=== PATIENT | male | born 1940 | race African-American/Black ===

== ENCOUNTER 2020-02-08 11:02 | Outpatient (CLI) | payer OTHER | END 2020-02-08 16:03 | disposition home or self-care (01) | LOC: SONOGRAMA 11:02 | PROVIDERS: ATTEND Specialist | DX: N40.2 Nodular prostate without lower urinary tract symptoms (principal); R97.20 Elevated prostate specific antigen [PSA] ==

== ENCOUNTER 2022-02-05 15:51 | Outpatient (CLI) | payer OTHER | END 2022-02-05 16:00 | disposition home or self-care (01) | LOC: RAD 15:51 | PROVIDERS: ATTEND Internal Medicine | DX: M54.50 Low back pain, unspecified (principal); M54.6 Pain in thoracic spine; M54.2 Cervicalgia; M25.562 Pain in left knee ==

== ENCOUNTER 2022-09-03 11:31 | Outpatient (CLI) | payer OTHER | END 2022-09-03 11:43 | disposition home or self-care (01) | LOC: TOM 11:31 | PROVIDERS: ATTEND Internal Medicine | DX: J44.9 Chronic obstructive pulmonary disease, unspecified (principal); R09.02 Hypoxemia; R91.8 Other nonspecific abnormal finding of lung field ==

== ENCOUNTER 2022-10-27 12:52 | Outpatient (CLI) | payer OTHER | END 2022-10-27 12:56 | disposition home or self-care (01) | LOC: RAD 12:52 | PROVIDERS: ATTEND Orthopaedic Surgery | DX: M25.562 Pain in left knee (principal) ==

== ENCOUNTER 2023-10-25 10:16 | Outpatient (CLI) | payer OTHER | END 2023-10-25 10:24 | disposition home or self-care (01) | LOC: SONOGRAMA 10:16 | PROVIDERS: ATTEND Internal Medicine | DX: R94.5 Abnormal results of liver function studies (principal); D50.8 Other iron deficiency anemias ==

== ENCOUNTER 2024-04-16 09:00 | Outpatient (CLI) | payer OTHER | END 2024-04-16 09:13 | disposition home or self-care (01) | LOC: SONOGRAMA 09:00 | PROVIDERS: ATTEND Internal Medicine | DX: N40.1 Benign prostatic hyperplasia with lower urinary tract symptoms (principal); J32.1 Chronic frontal sinusitis ==

== ENCOUNTER 2024-05-16 14:08 | Outpatient (CLI) | payer OTHER | END 2024-05-16 14:17 | disposition home or self-care (01) | LOC: RAD 14:08 | PROVIDERS: ATTEND Internal Medicine Rheumatology | DX: M49.87 Spondylopathy in diseases classified elsewhere, lumbosacral region (principal); M16.0 Bilateral primary osteoarthritis of hip; M51.379 Other intervertebral disc degeneration, lumbosacral region without mention of lumbar back pain or lower extremity pain | CPT/HCPCS: 72148 ==

== ENCOUNTER 2024-06-11 13:15 | Outpatient (CLI) | payer OTHER | END 2024-06-11 13:16 | disposition home or self-care (01) | LOC: NUCLEAR 13:15 | PROVIDERS: ATTEND Internal Medicine Rheumatology | DX: M81.0 Age-related osteoporosis without current pathological fracture (principal) ==

== ENCOUNTER 2025-02-28 12:04 | Outpatient (CLI) | payer OTHER | END 2025-02-28 12:15 | disposition home or self-care (01) | LOC: RAD 12:04 | PROVIDERS: ATTEND Internal Medicine Rheumatology | DX: M19.041 Primary osteoarthritis, right hand (principal); M19.042 Primary osteoarthritis, left hand; M19.031 Primary osteoarthritis, right wrist; M19.032 Primary osteoarthritis, left wrist; M06.09 Rheumatoid arthritis without rheumatoid factor, multiple sites ==